=== PATIENT | male | born 1950 | race African-American/Black ===

== ENCOUNTER 2017-07-26 07:40 | Inpatient (IN) | payer MEDICARE, OTHER ==
[2017-07-26] MEDS: CEFEPIME 2GM/50 ML (PMX) 50 ML IVPB (08:40)
[2017-07-26] MEDS: DEXTROSE 5%-0.9% NACL 1,000 ML IV (08:40)
[2017-07-26] MEDS: VANCOMYCIN 1 GM (PMX) 250 ML IVPB (08:41)
[2017-07-26 08:47] LABS: ADD MAN DIFF? NO
[2017-07-26 08:51] LABS: ABNORMAL IP MESSAGE 1; HEMATOCRIT 37.1 % (42.0-52.0); HEMOGLOBIN 11.8 g/dl (14.0-18.0); MEAN CORPUSCULAR HEMOGLOBIN 24.6 pg (29.0-33.0); MEAN CORPUSCULAR HGB CONC 31.8 g/dl (32.0-37.0); MEAN CORPUSCULAR VOLUME 77.3 fl (82.0-101.0); MEAN PLATELET VOLUME 9.5 fl (7.4-10.4); NUCLEATED RED BLOOD CELLS% 0.7 /100WBC (0.0-0.0); PLATELET COUNT 147 10^3/UL (140-415); POSITIVE DIFF @See below; RED CELL DISTRIBUTION WIDTH 25.1 % (11.5-14.5)
[2017-07-26 08:51] LABS: WHITE BLOOD COUNT 6.8 10^3/ul (4.8-10.8)
[2017-07-26 09:14] LABS: ALANINE AMINOTRANSFERASE 12 IU/L (13-69); ALBUMIN 3.4 g/dl (3.3-4.9); ALBUMIN/GLOBULIN RATIO 0.53; ALKALINE PHOSPHATASE 240 IU/L (42-121); ANION GAP 16 (8-16); ASPARTATE AMINO TRANSFERASE 46 IU/L (15-46); BILIRUBIN,INDIRECT 0.7 mg/dl (0-1.1); BILIRUBIN,TOTAL 0.9 mg/dl (0.2-1.3); BLOOD UREA NITROGEN 41 mg/dl (7-20); CALCIUM 7.9 mg/dl (8.4-10.2); CARBON DIOXIDE 27 mmol/L (21-31); CHLORIDE 101 mmol/L (97-110); CREATININE 4.66 mg/dl (0.61-1.24); POTASSIUM 4.4 mmol/L (3.5-5.1); SODIUM 140 mmol/L (135-144); TOTAL PROTEIN 9.7 g/dl (6.1-8.1)
[2017-07-26 09:18] LABS: GLUCOSE 48 mg/dl (70-220)
[2017-07-26] MEDS ORDERED: DEXTROSE 50% 50 ML SYRINGE (09:20)
[2017-07-26] MEDS: DEXTROSE 50% 50 ML SYRINGE IV ×2 (09:23→21:27)
[2017-07-26 09:24] LABS: INR 1.42; PROTIME 17.6 Sec (11.9-14.9); PT RATIO 1.4
[2017-07-26 09:26] LABS: TROPONIN-I 0.054 ng/ml (0.000-0.120)
[2017-07-26] MEDS ORDERED: ONDANSETRON 4 MG INJ IV ×2 (09:30→10:30)
[2017-07-26] MEDS ORDERED: ACETAMINOPHEN 325 MG TAB PO ×2 (09:30→10:30)
[2017-07-26 09:51] LABS: ANISOCYTOSIS 1+ (0-0); BASOPHILS % (M) 1 % (0-2); GIANT THROMBO% (M) 2 % (0-0); HYPOCHROMASIA 1+ (0-0); LYMPHOCYTES #M 0.6 10^3/ul (0.8-2.9); LYMPHOCYTES % (M) 9 % (15-51); MONOCYTE #M 0.8 10^3/ul (0.3-0.9); MONOCYTES % (M) 12 % (0-11); PLATELET ESTIMATE NORMAL; POIKILOCYTOSIS 1+ (0-0); POLYCHROMASIA 1+ (0-0); SEGMENTED NEUTROPHILS (M) % 78 % (39-77); TARGET CELLS 1+ (0-0)
[2017-07-26] MEDS ORDERED: DOCUSATE SODIUM 100 MG CAP PO (10:30)
[2017-07-26] MEDS ORDERED: NACL 0.9% 3 ML SYG IV (10:30)
[2017-07-26 11:39] LABS: HEMOGLOBIN A1C 5.4 % (0-5.9)
[2017-07-26 11:52] LABS: LACTIC ACID 2.7 mmol/L (0.5-2.0)
[2017-07-26] MEDS ORDERED: DEXTROSE 50% 50 ML SYRINGE IV (12:00)
[2017-07-26] MEDS ORDERED: GLUCOSE GEL 15 GRAM TUBE PO ×2 (12:00)
[2017-07-26] MEDS ORDERED: GLUCAGON 1 MG INJ IM (12:00)
[2017-07-26] MEDS ORDERED: GLUCOSE GEL 15 GRAM TUBE BUCCAL (12:00)
[2017-07-26] MEDS: SILDENAFIL 20 MG TAB PO ×2 (13:00→23:09)
[2017-07-26] MEDS ORDERED: NUT TX IMPAIRED RENAL FXN SOY PO (13:00)
[2017-07-26] MEDS ORDERED: [UNRECOGNIZED DRUG - OTHER] PO (13:00)
[2017-07-26 13:35] LABS: B-TYPE NATRIURETIC PEPTIDE 8970 PG/ML (0-125)
[2017-07-26 13:56] LABS: CARCINOEMBRYONIC ANTIGEN 3.2 ng/ml (0.0-5.0)
[2017-07-26] MEDS ORDERED: BUMETANIDE 1 MG TAB PO (14:00)
[2017-07-26 18:58] LABS: HEPATITIS B SURFACE ANTIGEN NEGATIVE (NEGATIVE)
[2017-07-26] MEDS: HEPARIN 1000 UNITS/ML 10 ML INJ CATHETER (20:16)
[2017-07-26] MEDS: SOD CHLORIDE 0.9% 500 ML IV (21:23)
[2017-07-26] MEDS: METOPROLOL 25 MG TAB PO (23:08)
[2017-07-26] MEDS: ATORVASTATIN 10 MG TAB PO (23:10)
[2017-07-27 01:45] LABS: LACTIC ACID 3.2 mmol/L (0.5-2.0)
[2017-07-27] MEDS ORDERED: PENDING SANTYL ORDER FOR WOUND CARE XX (02:00)
[2017-07-27] MEDS: SOD CHLORIDE 0.9% 250 ML IV (02:22)
[2017-07-27 08:01] LABS: ADD MAN DIFF? NO
[2017-07-27 08:11] LABS: WHITE BLOOD COUNT 7.5 10^3/ul (4.8-10.8)
[2017-07-27 08:11] LABS: ABNORMAL IP MESSAGE 1; BASOPHILS % 0.4 % (0.0-2.0); EOSINOPHILS # 0.6 10^3/ul (0.0-0.5); EOSINOPHILS % 7.9 % (0.0-7.0); HEMATOCRIT 33.3 % (42.0-52.0); HEMOGLOBIN 10.9 g/dl (14.0-18.0); LYMPHOCYTES # 0.9 10^3/ul (0.8-2.9); LYMPHOCYTES % 11.9 % (15.0-51.0); MEAN CORPUSCULAR HEMOGLOBIN 25.1 pg (29.0-33.0); MEAN CORPUSCULAR HGB CONC 32.7 g/dl (32.0-37.0); MEAN CORPUSCULAR VOLUME 76.6 fl (82.0-101.0); MEAN PLATELET VOLUME 9.3 fl (7.4-10.4); MONOCYTE # 1.1 10^3/ul (0.3-0.9); MONOCYTES % 14.9 % (0.0-11.0); NEUTROPHIL # 4.8 10^3/ul (1.6-7.5); NEUTROPHILS % 64.4 % (39.0-77.0); NUCLEATED RED BLOOD CELLS% 0.3 /100WBC (0.0-0.0); PLATELET COUNT 153 10^3/UL (140-415); POSITIVE DIFF @See below; RED BLOOD COUNT 4.35 10^6/ul (4.70-6.10); RED CELL DISTRIBUTION WIDTH 24.2 % (11.5-14.5)
[2017-07-27 08:24] LABS: ANION GAP 16 (8-16); BLOOD UREA NITROGEN 31 mg/dl (7-20); CALCIUM 7.3 mg/dl (8.4-10.2); CARBON DIOXIDE 27 mmol/L (21-31); CHLORIDE 103 mmol/L (97-110); CREATININE 3.43 mg/dl (0.61-1.24); GLUCOSE 51 mg/dl (70-220); MAGNESIUM 1.8 mg/dl (1.7-2.5); PHOSPHORUS 4.6 mg/dl (2.5-4.9); POTASSIUM 3.8 mmol/L (3.5-5.1); SODIUM 142 mmol/L (135-144)
[2017-07-27] MEDS: DEXTROSE 50% 50 ML SYRINGE IV (08:44)
[2017-07-27] MEDS ORDERED: POTASSIUM CHLORIDE (SR) 10 MEQ TAB PO (09:00)
[2017-07-27] MEDS ORDERED: CELECOXIB 200 MG CAP PO (09:00)
[2017-07-27] MEDS: LACTOBACILLUS RHAMNOSUS CAP PO (09:24)
[2017-07-27] MEDS: ASPIRIN 81 MG TAB PO (09:24)
[2017-07-27] MEDS: DEXTROSE 5%-0.45% NACL 1,000 ML IV (09:25)
[2017-07-27] MEDS: METOPROLOL 25 MG TAB PO ×2 (09:27→20:22)
[2017-07-27] MEDS: AMLODIPINE 10 MG TAB PO (09:27)
[2017-07-27] MEDS: SILDENAFIL 20 MG TAB PO ×3 (11:29→20:22)
[2017-07-27] MEDS: ACCU-CHEK XX ×3 (12:39→20:22)
[2017-07-27] MEDS ORDERED: VITAMIN A & D 5 GM OINT PACKET TOP (14:10)
[2017-07-27] MEDS: BALSAM PERU/CASTOR OIL 60 GM TUBE TOP (14:40)
[2017-07-27] MEDS: ATORVASTATIN 10 MG TAB PO (20:22)
[2017-07-27] MEDS: INSULIN ASPART [NOVOLOG] 3 ML PEN SC (21:36)
[2017-07-27] MEDS: DIPHENHYDRAMINE 50 MG CAP PO (22:45)
[2017-07-27] MEDS: traMADol 50 MG TAB PO (22:52)
[2017-07-28] MEDS: ACCU-CHEK XX ×6 (01:00→21:00)
[2017-07-28] MEDS: INSULIN ASPART [NOVOLOG] 3 ML PEN SC ×6 (01:00→21:00)
[2017-07-28] MEDS: DEXTROSE 5%-0.45% NACL 1,000 ML IV ×2 (01:40→12:25)
[2017-07-28 08:22] LABS: ADD MAN DIFF? NO
[2017-07-28 08:29] LABS: ABNORMAL IP MESSAGE 1; BASOPHIL # 0.1 10^3/ul (0.0-0.1); BASOPHILS % 0.8 % (0.0-2.0); EOSINOPHILS # 0.7 10^3/ul (0.0-0.5); EOSINOPHILS % 11.3 % (0.0-7.0); HEMOGLOBIN 10.6 g/dl (14.0-18.0); LYMPHOCYTES # 1.1 10^3/ul (0.8-2.9); LYMPHOCYTES % 18.6 % (15.0-51.0); MEAN CORPUSCULAR HEMOGLOBIN 24.5 pg (29.0-33.0); MEAN CORPUSCULAR HGB CONC 31.2 g/dl (32.0-37.0); MEAN CORPUSCULAR VOLUME 78.7 fl (82.0-101.0); MEAN PLATELET VOLUME 9.8 fl (7.4-10.4); MONOCYTE # 1.5 10^3/ul (0.3-0.9); MONOCYTES % 24.1 % (0.0-11.0); NEUTROPHIL # 2.7 10^3/ul (1.6-7.5); NEUTROPHILS % 44.7 % (39.0-77.0); PLATELET COUNT 187 10^3/UL (140-415); POSITIVE DIFF @See below; RED BLOOD COUNT 4.32 10^6/ul (4.70-6.10); RED CELL DISTRIBUTION WIDTH 24.7 % (11.5-14.5)
[2017-07-28 08:49] LABS: ANION GAP 13 (8-16); BLOOD UREA NITROGEN 39 mg/dl (7-20); CALCIUM 7.7 mg/dl (8.4-10.2); CARBON DIOXIDE 27 mmol/L (21-31); CHLORIDE 104 mmol/L (97-110); CREATININE 3.83 mg/dl (0.61-1.24); GLUCOSE 98 mg/dl (70-220); PHOSPHORUS 5.2 mg/dl (2.5-4.9); POTASSIUM 4.4 mmol/L (3.5-5.1); SODIUM 140 mmol/L (135-144)
[2017-07-28] MEDS: LACTOBACILLUS RHAMNOSUS CAP PO (09:50)
[2017-07-28] MEDS: ASPIRIN 81 MG TAB PO (09:50)
[2017-07-28] MEDS: SILDENAFIL 20 MG TAB PO ×3 (09:50→22:29)
[2017-07-28] MEDS: METOPROLOL 25 MG TAB PO ×2 (09:51→21:00)
[2017-07-28] MEDS: AMLODIPINE 10 MG TAB PO (09:51)
[2017-07-28] MEDS: BALSAM PERU/CASTOR OIL 60 GM TUBE TOP (13:00)
[2017-07-28] MEDS: LINAGLIPTIN 5 MG TABLET PO (15:47)
[2017-07-28] MEDS: ALBUMIN HUMAN 25% 100 ML IV (18:21)
[2017-07-28] MEDS: HEPARIN 1000 UNITS/ML 10 ML INJ CATHETER (20:51)
[2017-07-28] MEDS: ATORVASTATIN 10 MG TAB PO (22:29)
[2017-07-28] MEDS: DIPHENHYDRAMINE 50 MG CAP PO (23:27)
[2017-07-29] MEDS: ACCU-CHEK XX ×6 (01:00→21:00)
[2017-07-29] MEDS: INSULIN ASPART [NOVOLOG] 3 ML PEN SC ×6 (01:00→21:00)
[2017-07-29] MEDS: LINAGLIPTIN 5 MG TABLET PO (08:45)
[2017-07-29] MEDS: SILDENAFIL 20 MG TAB PO ×3 (08:45→21:21)
[2017-07-29] MEDS: LACTOBACILLUS RHAMNOSUS CAP PO (08:45)
[2017-07-29] MEDS: AMLODIPINE 10 MG TAB PO (08:46)
[2017-07-29] MEDS: METOPROLOL 25 MG TAB PO ×2 (08:46→21:21)
[2017-07-29] MEDS: BALSAM PERU/CASTOR OIL 60 GM TUBE TOP (08:46)
[2017-07-29] MEDS: ASPIRIN 81 MG TAB PO (08:46)
[2017-07-29] MEDS: DEXTROSE 5%-0.45% NACL 1,000 ML IV (10:44)
[2017-07-29] MEDS: DIPHENHYDRAMINE 50 MG CAP PO (19:43)
[2017-07-29] MEDS: ATORVASTATIN 10 MG TAB PO (21:21)
[2017-07-29] MEDS: traMADol 50 MG TAB PO (21:21)
[2017-07-30] MEDS: ACCU-CHEK XX ×6 (01:00→21:37)
[2017-07-30] MEDS: INSULIN ASPART [NOVOLOG] 3 ML PEN SC ×6 (01:00→21:00)
[2017-07-30] MEDS: DEXTROSE 5%-0.45% NACL 1,000 ML IV (04:10)
[2017-07-30] MEDS: LACTOBACILLUS RHAMNOSUS CAP PO (08:51)
[2017-07-30] MEDS: AMLODIPINE 10 MG TAB PO (08:51)
[2017-07-30] MEDS: ASPIRIN 81 MG TAB PO (08:51)
[2017-07-30] MEDS: LINAGLIPTIN 5 MG TABLET PO (08:51)
[2017-07-30] MEDS: SILDENAFIL 20 MG TAB PO ×3 (08:52→21:00)
[2017-07-30] MEDS: METOPROLOL 25 MG TAB PO ×2 (08:52→21:30)
[2017-07-30] MEDS: BALSAM PERU/CASTOR OIL 60 GM TUBE TOP (08:58)
[2017-07-30 11:26] LABS: ADD MAN DIFF? NO
[2017-07-30 11:34] LABS: ABNORMAL IP MESSAGE 1; BASOPHIL # 0.1 10^3/ul (0.0-0.1); BASOPHILS % 0.9 % (0.0-2.0); EOSINOPHILS # 0.5 10^3/ul (0.0-0.5); EOSINOPHILS % 9.4 % (0.0-7.0); HEMATOCRIT 35.2 % (42.0-52.0); HEMOGLOBIN 10.9 g/dl (14.0-18.0); LYMPHOCYTES # 1.2 10^3/ul (0.8-2.9); LYMPHOCYTES % 20.5 % (15.0-51.0); MEAN CORPUSCULAR HEMOGLOBIN 24.7 pg (29.0-33.0); MEAN CORPUSCULAR VOLUME 79.6 fl (82.0-101.0); MEAN PLATELET VOLUME 9.8 fl (7.4-10.4); MONOCYTE # 1.3 10^3/ul (0.3-0.9); MONOCYTES % 22.6 % (0.0-11.0); NEUTROPHIL # 2.6 10^3/ul (1.6-7.5); NEUTROPHILS % 45.9 % (39.0-77.0); PLATELET COUNT 200 10^3/UL (140-415); POSITIVE DIFF @See below; RED BLOOD COUNT 4.42 10^6/ul (4.70-6.10); RED CELL DISTRIBUTION WIDTH 24.6 % (11.5-14.5)
[2017-07-30 11:34] LABS: WHITE BLOOD COUNT 5.6 10^3/ul (4.8-10.8)
[2017-07-30 12:00] LABS: ANION GAP 14 (8-16); BLOOD UREA NITROGEN 38 mg/dl (7-20); CALCIUM 8.1 mg/dl (8.4-10.2); CARBON DIOXIDE 28 mmol/L (21-31); CHLORIDE 103 mmol/L (97-110); CREATININE 4.33 mg/dl (0.61-1.24); GLUCOSE 168 mg/dl (70-220); POTASSIUM 4.3 mmol/L (3.5-5.1); SODIUM 141 mmol/L (135-144)
[2017-07-30] MEDS: DIPHENHYDRAMINE 50 MG CAP PO (21:29)
[2017-07-30] MEDS: ATORVASTATIN 10 MG TAB PO (21:29)
[2017-07-31] MEDS: INSULIN ASPART [NOVOLOG] 3 ML PEN SC ×4 (01:00→12:36)
[2017-07-31] MEDS: ACCU-CHEK XX ×4 (01:48→12:36)
[2017-07-31] MEDS: METOPROLOL 25 MG TAB PO (08:27)
[2017-07-31] MEDS: AMLODIPINE 10 MG TAB PO (08:28)
[2017-07-31] MEDS: SILDENAFIL 20 MG TAB PO ×2 (08:28→13:00)
[2017-07-31] MEDS: BALSAM PERU/CASTOR OIL 60 GM TUBE TOP (08:28)
[2017-07-31] MEDS: LINAGLIPTIN 5 MG TABLET PO (08:31)
[2017-07-31] MEDS: ASPIRIN 81 MG TAB PO (08:31)
[2017-07-31] MEDS: LACTOBACILLUS RHAMNOSUS CAP PO (08:32)
[2017-07-31 09:14] LABS: ADD MAN DIFF? NO
[2017-07-31 09:18] LABS: ABNORMAL IP MESSAGE 1; BASOPHILS % 0.7 % (0.0-2.0); EOSINOPHILS # 0.5 10^3/ul (0.0-0.5); HEMATOCRIT 32.6 % (42.0-52.0); HEMOGLOBIN 10.3 g/dl (14.0-18.0); LYMPHOCYTES # 1.2 10^3/ul (0.8-2.9); LYMPHOCYTES % 20.7 % (15.0-51.0); MEAN CORPUSCULAR HEMOGLOBIN 25.1 pg (29.0-33.0); MEAN CORPUSCULAR HGB CONC 31.6 g/dl (32.0-37.0); MEAN CORPUSCULAR VOLUME 79.5 fl (82.0-101.0); MEAN PLATELET VOLUME 8.9 fl (7.4-10.4); MONOCYTE # 1.5 10^3/ul (0.3-0.9); MONOCYTES % 25.6 % (0.0-11.0); NEUTROPHIL # 2.5 10^3/ul (1.6-7.5); NEUTROPHILS % 44.1 % (39.0-77.0); PLATELET COUNT 187 10^3/UL (140-415); POSITIVE DIFF @See below; RED CELL DISTRIBUTION WIDTH 24.1 % (11.5-14.5)
[2017-07-31 09:18] LABS: WHITE BLOOD COUNT 5.7 10^3/ul (4.8-10.8)
[2017-07-31 09:41] LABS: IRON 58 ug/dl (35-150)
[2017-07-31 09:42] LABS: ANION GAP 11 (8-16); BLOOD UREA NITROGEN 37 mg/dl (7-20); CALCIUM 7.9 mg/dl (8.4-10.2); CARBON DIOXIDE 31 mmol/L (21-31); CHLORIDE 104 mmol/L (97-110); GLUCOSE 106 mg/dl (70-220); POTASSIUM 4.3 mmol/L (3.5-5.1); SODIUM 142 mmol/L (135-144)
[2017-07-31 09:50] LABS: % IRON SATURATION 22 % SAT (22-52)
[2017-07-31 09:52] LABS: TOTAL IRON BINDING CAPACITY 259 ug/dl (241-421)
[2017-07-31 09:56] LABS: FREE T4 (FREE THYROXINE) 1.31 ng/dl (0.78-2.44)
[2017-07-31 10:16] LABS: FERRITIN 90.1 ng/ml (11.1-264.0)
[2017-07-31] MEDS: HEPARIN 1000 UNITS/ML 10 ML INJ CATHETER (11:10)
[2017-07-31] MEDS: DIPHENHYDRAMINE 50 MG CAP PO (16:22)
== END 2017-07-31 16:35 | DRG 638 ==
LOC: E/R 07:40 → MS4 09:29
PROVIDERS: Internal Medicine
PROC: 5A1D70Z Performance of Urinary Filtration, Intermittent, Less than 6 Hours Per Day (ICD-10-PCS; principal; 2017-07-26)
DX: E11.649 Type 2 diabetes mellitus with hypoglycemia without coma (principal); I13.2 Hypertensive heart and chronic kidney disease with heart failure and with stage 5 chronic kidney disease, or end stage renal disease; R18.8 Other ascites; E87.2 Acidosis; T38.3X5A Adverse effect of insulin and oral hypoglycemic [antidiabetic] drugs, initial encounter; N18.6 End stage renal disease; E11.22 Type 2 diabetes mellitus with diabetic chronic kidney disease; I27.20 Pulmonary hypertension, unspecified; I50.812 Chronic right heart failure; L89.152 Pressure ulcer of sacral region, stage 2; D63.1 Anemia in chronic kidney disease; I73.9 Peripheral vascular disease, unspecified; E87.70 Fluid overload, unspecified; Z99.2 Dependence on renal dialysis; E66.9 Obesity, unspecified; Z68.32 Body mass index [BMI] 32.0-32.9, adult; Z87.891 Personal history of nicotine dependence; Z79.84 Long term (current) use of oral hypoglycemic drugs; Z79.82 Long term (current) use of aspirin; Z79.1 Long term (current) use of non-steroidal anti-inflammatories (NSAID)
CPT/HCPCS: 36415; 71045; 76700; 80048; 80053; 82378; 82728; 82962; 83036; 83540; 83605; 83735; 83880; 84100; 84439; 84443; 84484; 85025; 85610; 85730; 86301; 87040; 87045; 87081; 87340; 90935; 93005; 93306; 93970; 93971; 96365; 96366; 96375; 96376; 97110; 97162; 97166; 97530; 99285-25